=== PATIENT | female | born 1945 | race Caucasian/White ===

== ENCOUNTER → 2023-09-14 09:17 | Outpatient (REF) | payer MEDICARE, OTHER, SELFPAY ==
[2023-09-14 13:34] LABS: Blood Urea Nitrogen 22 mg/dl (7-17); Calcium 10.2 mg/dl (8.4-10.2); Carbon Dioxide 31 mmol/L (22-30); Chloride 97 mmol/L (98-107); Glucose 206 mg/dl (70-99); Sodium 135 mmol/L (135-145); eGFR 51.75
[2023-09-14 13:41] LABS: Potassium 4.8 mmol/L (3.5-5.1)
[2023-09-14 14:15] LABS: Glycohemoglobin (HgbA1c) 7.7 % (4.0-5.6)
== END ==
LOC: HWLAB 09:17
PROVIDERS: ATTENDING PHYSICIAN Internal Medicine
DX: I10 Essential (primary) hypertension (principal); E11.9 Type 2 diabetes mellitus without complications
CPT/HCPCS: 36415; 80048; 83036

== ENCOUNTER → 2023-10-09 07:53 | Outpatient (REF) | payer MEDICARE, OTHER, SELFPAY | LOC: HWRAD 07:53 | PROVIDERS: ATTENDING PHYSICIAN Internal Medicine | DX: M25.552 Pain in left hip (principal) | CPT/HCPCS: 73502 ==

== ENCOUNTER 2023-11-28 11:52 | Emergency (ER) | payer MEDICARE, OTHER, SELFPAY ==
[2023-11-28 11:53] VITALS: BP 105/67
--- NOTE | 2023-11-28 12:54 | ED.GENMED ---
History of Present Illness
<Jocelyne Whatley PA-C - Last Filed: 11/28/23 18:08>
General
Chief Complaint: DVT/Possible Blood Clot
Source: patient
Exam Limitations: none
Time Seen by Provider: 11/28/23 12:01
Nursing documentation reviewed up to this point in time: agreed with
Travel History
Have you had any contact with someone who has COVID-19?: No
Do you have any symptoms of coronavirus? Fever > 100 degrees, chills, cough, shortness of breath, sore throat, loss of taste or smell, muscle aches, or headache?: No
History of Present Illness
History of Present Illness:
Patient is a 78-year-old female with history of diabetes presenting for evaluation of atraumatic left ankle pain. Patient states that she had pain in her left ankle that woke her up in the middle of the night last night. She endorses a sharp pain
in her left ankle which initially started on the medial aspect and now moved to the lateral aspect. She has been unable to bear weight due to the pain. Patient was seen at an urgent care earlier today where they performed an x-ray which was
negative for any acute fracture. She was sent to the emergency department to rule out a blood clot.
Patient denies any associated fever, chills, nausea, vomiting, weakness. Patient denies any numbness/tingling in left lower extremity. Patient denies any known trauma. Patient denies any recent insect bites, wounds to the left ankle. Patient
denies any past history of gout. Patient denies any history of blood clots or clotting disorders.
Past History
<Jocelyne Whatley PA-C - Last Filed: 11/28/23 18:08>
Past History
ED Past Medical History: Cancer, HTN, NIDDM and Hypothyroidism
ED Past Surgical History: Appendectomy, Cardiac (Pacemaker), Cholecystectomy and Other (Mastectomy)
Social History
Tobacco: Non-smoker
Alcohol: None
Drug: None
Personal:
Living: with family
Review of Systems
<Jocelyne Whatley PA-C - Last Filed: 11/28/23 18:08>
Review of Systems
Allergies reviewed?: Yes
All Other Systems: ROS reviewed and negative except as documented in HPI and ROS
Phy Exam
<Jocelyne Whatley PA-C - Last Filed: 11/28/23 18:08>
Physical Exam
Physical Exam:
Vitals: Patient's vital signs are stable. Afebrile
General: Patient is well appearing, no acute distress. Nontoxic-appearing
Skin: Warm and dry, no rashes or lesions. No bruising
Head: Normocephalic, atraumatic
Eyes: Sclera nonicteric. EOMs intact. No nystagmus.
Throat: Protecting airway
Neck: Normal ROM, no cervical spine tenderness, no meningismus
Cardiac: Regular rate and rhythm, no murmurs.
Pulm: Normal respiratory effort, no wheezes, rales, rhonchi heard on exam.
Abdomen: Abdomen soft. No abdominal tenderness.
Extremities: Swelling and tenderness noted to left ankle at lateral malleolus. Some mild tenderness at right medial knee. No tenderness to left medial malleolus. There is no warmth or erythema of left ankle. No red streaking. No tenderness to
base of fifth metatarsal or left midfoot, left hindfoot. Achilles is intact. DP and PT pulses palpable and intact. Somewhat limited range of motion in left ankle due to pain.
Neuro: AAOx3. CN II-XII intact. No focal neurologic deficits.
Psychiatric: Normal affect.
Course
<Jocelyne Whatley PA-C - Last Filed: 11/28/23 18:08>
Orders/Labs/Results
Orders:
Orders
11/28/23 12:02
US Periph Venous LOWER Ext LT Urgent
Comment:
Reason For Exam: nontraumatic leg pain, normal xrays
11/28/23 12:53
Acetaminophen [Tylenol] 650 mg PO NOW STA
11/28/23 13:11
Ankle, left 3 view CR [CR Ankle - Left Min 3 Views ] Urgent
Comment:
Reason For Exam: atraumatic left ankle pain
11/28/23 13:42
CRP [C-Reactive Protein] Urgent
Complete Blood Count/With Diff Urgent
Comprehensive Metabolic Panel Urgent
ESR [Erythrocyte Sed Rate] Urgent
Lyme PCR, DNA [S] Urgent
Uric Acid Urgent
11/28/23 15:31
Air Splint Left-Treatment ONCE
Abnormal Lab Results
11/28/23
13:42
Absolute Monos (auto) 0.7 H 10^3/uL
(0.1-0.6)
Lymphocytes % 20.2 L %
(20.5-51.1)
Monocytes % 9.4 H %
(1.7-9.3)
BUN 23 H mg/dl
(7-17)
Glucose 142 H mg/dl
(70-99)
11/28/23 13:42
11/28/23 13:42
Vital Signs
Initial and Last Documented VS:
Initial Vital Signs
Temp Pulse Resp BP Pulse Ox
98.8 F 60 18 105/67 98
11/28/23 11:53 11/28/23 11:53 11/28/23 11:53 11/28/23 11:53 11/28/23 11:53
Last Documented Vital Signs
Temp Pulse Resp BP Pulse Ox
98.8 F 60 18 119/57 98
11/28/23 11:53 11/28/23 15:59 11/28/23 15:59 11/28/23 15:59 11/28/23 15:59
Cathilt;Rocael José DO - Last Filed: 11/28/23 13:52>
Orders/Labs/Results
Orders:
Orders
11/28/23 12:02
US Periph Venous LOWER Ext LT Urgent
Comment:
Reason For Exam: nontraumatic leg pain, normal xrays
11/28/23 12:53
Acetaminophen [Tylenol] 650 mg PO NOW STA
11/28/23 13:11
Ankle, left 3 view CR [CR Ankle - Left Min 3 Views ] Urgent
Comment:
Reason For Exam: atraumatic left ankle pain
11/28/23 13:42
CRP [C-Reactive Protein] Urgent
Complete Blood Count/With Diff Urgent
Comprehensive Metabolic Panel Urgent
ESR [Erythrocyte Sed Rate] Urgent
Lyme PCR, DNA [S] Urgent
Uric Acid Urgent
11/28/23 15:31
Air Splint Left-Treatment ONCE
Abnormal Lab Results
11/28/23
13:42
Absolute Monos (auto) 0.7 H 10^3/uL
(0.1-0.6)
Lymphocytes % 20.2 L %
(20.5-51.1)
Monocytes % 9.4 H %
(1.7-9.3)
BUN 23 H mg/dl
(7-17)
Glucose 142 H mg/dl
(70-99)
11/28/23 13:42
11/28/23 13:42
Vital Signs
Initial and Last Documented VS:
Initial Vital Signs
Temp Pulse Resp BP Pulse Ox
98.8 F 60 18 105/67 98
11/28/23 11:53 11/28/23 11:53 11/28/23 11:53 11/28/23 11:53 11/28/23 11:53
Last Documented Vital Signs
Temp Pulse Resp BP Pulse Ox
98.8 F 60 18 119/57 98
11/28/23 11:53 11/28/23 15:59 11/28/23 15:59 11/28/23 15:59 11/28/23 15:59
<Jocelyne Whatley PA-C - Last Filed: 11/28/23 18:08>
MDM/Problems Addressed
Differential Diagnosis Includes:
Not limited to: Ankle sprain, ankle fracture, DVT, septic arthritis, Lyme arthritis, gouty arthritis, left ankle effusion
MDM/Problems Addressed:
78-year-old female with history diabetes, hypertension presenting for evaluation of acute onset left ankle pain last night. No known trauma or inciting event. Patient without any systemic symptoms of infection including fever, chills, fatigue,
nausea, vomiting, weakness. Patient seen in urgent care with negative left foot x-ray and sent to emergency department for DVT rule out. Patient's vital signs are stable, she is afebrile. Physical exam as above. Patient is well-appearing, in no
apparent distress. Patient is nontoxic-appearing. There is some pain and swelling noted around left lateral malleolus without any overlying warmth, erythema, red streaking. No evidence to suggest cellulitis. Do not suspect septic arthritis given
lack of systemic symptoms and no redness or warmth of joint. Patient has limited range of motion left ankle due to pain. Achilles intact. Great sensation and palpable pulses of left lower extremity. Will give Tylenol for pain. Apply ice.
It appears that only foot x-rays performed urgent care. Will get x-ray of left ankle. Will check ultrasound to rule out DVT, although very low suspicion for this currently. Given history of diabetes and atraumatic nature of pain�will check basic
labs, inflammatory markers, Lyme titer, uric acid to evaluate for other possible causes of joint swelling.
Labs noted. No leukocytosis. Both ESR and CRP are within normal range. Uric acid levels within normal range, as well chemistry without any clinically significant abnormalities. Lyme testing pending. X-ray of ankle shows no evidence of acute
fracture or dislocation. Ultrasound of left lower extremity shows no evidence of DVT. At this point�work appears mostly negative. Unsure exact etiology of patient's symptoms today although possibility that it is an unknown injury. Liklihood of
septic arthritis less likely given no evidence of leukocytosis or elevation in inflammatory markers. Patient had significant improvement in pain following Tylenol. She was able to ambulate with the help of a walker to the bathroom. She is stable
for discharge at this point with close return precautions for any signs of infection or worsening symptoms. Patient will place in air splint and will get a walker at a pharmacy at home per patient's daughter. Patient was offered prescription for
anti-inflammatory�declined and will stick with Tylenol. Discharged with return precautions, instructions to rest, ice, elevate and follow-up with primary care for further evaluation. Patient will be contacted if Lyme test positive.
Chronic conditions affecting care:
Diabetes
Acute Exacerbation and/or Progression of Chronic Illness:
N/A
<Jocelyne Whatley PA-C - Last Filed: 11/28/23 18:08>
*Radiology
Radiology exam reviewed: preliminary read by ED provider and radiology read reviewed
*Pulse Oximetry
Patient hypoxic: no
*EKG
Interpreted by ED Provider?: NA
*Olericulture Professor Interpretation
Rate: Olericulture Professor- N/A
*Critical Care Note
Total Time (30-74mins, 75-104mins- exclusive of procedures): Not Applicable
ED Attending Note
<Jocelyne Whatley PA-C - Last Filed: 11/28/23 18:08>
-
Portions of this chart may have been created with voice recognition software.� Occasional wrong word or��sound alike� substitutions may have occurred due to the inherent limitations of voice recognition software.
<Rocael José DO - Last Filed: 11/28/23 13:52>
ED Attending Note
Patient seen and examined by attending physician: Yes
I performed the substantive portion of visit, reviewed & personally made and approve the management plan that is documented in note by myself or DANY.: Yes
ED Attending Note:
Patient is a 78-year-old female who is diabetic with sugars ranging under 200s in the morning who presents with left ankle pain. Patient went to urgent care and was sent to the emergency department to rule out DVT. Patient denies any previous
history of DVT. Patient denies any injury to the ankle. Patient has pain with walking. Patient denies any rashes or bug bites. Patient denies fever or chills. Patient on physical exam does not appear to be in any distress. Ankle is tender and
swollen around the lateral malleolus. Achilles tendon intact. Left knee is tender along the medial surface. Patient has no edema or cyanosis. X-ray of the ankle is unremarkable. I doubt DVT but will check an ultrasound. Will also check labs.
Unsure but appears to be more inflammatory but could be an unknown injury. Do not anticipate the patient requiring admission. Will check renal function to see about anti-inflammatories. Would prefer not to use prednisone given the patient's
diabetic questionable on ability to adjust medication.
Discharge Plan
Departure
Patient Disposition: Home (Routine Discharge)
Date of Disposition: 11/28/23
Time of Disposition: 15:32
Patient with high blood pressure during this ER visit?: No
Condition: Good
Covid-19: Not Applicable
Discharge Problem:
Left ankle swelling
Instructions: Ankle Sprain ED
Prescriptions:
No Action
pioglitazone [Actos] 15 mg Tablet
15 mg PO NOON
donepezil 5 mg Tablet
3 mg PO BID
famotidine 40 mg Tablet
40 mg PO NOON
sertraline [Zoloft] 100 mg Tablet
100 mg PO BID
levothyroxine [Synthroid] 100 mcg Tablet
100 mcg PO DAILY
alprazolam [Xanax] 0.5 mg Tablet
0.5 mg PO TID
methenamine hippurate [Hiprex] 1 gram Tablet
1 g PO QPM
ascorbic acid (vitamin C) [Vitamin C] 500 mg Tablet
500 mg PO NOON
vitamin B complex Tablet
1 tab PO NOON
ramipril [Altace] 5 mg Capsule
5 mg PO BID
cholecalciferol (vitamin D3) [Vitamin D3] 25 mcg (1,000 unit) Tablet
25 mcg PO NOON
nebivolol [Bystolic] 10 mg Tablet
10 mg PO QPM
pantoprazole [Protonix] [address] For Susp In Packet
40 mg PO QPM
hyalur ac-chond sul-colg II-AA 40-80-400 mg Capsule
1 cap PO NOON
magnesium oxide 400 mg magnesium Capsule
400 mg PO NOON
Probiotic (with Vitamin D3) 2 billion cell- 5 mcg Tablet,Chewable
1 tab PO DAILY
Referrals:
Sim Patton MD [Family Provider] - Follow up in 5-7 days
Activity Restrictions/Additional Instructions:
RETURN TO THE EMERGENCY DEPARTMENT WITH ANY FEVERS, CHILLS, INTRACTABLE PAIN, WORSENING IN REDNESS,WARMTH, OR SWELLING OF ANKLE, NUMBNESS/TINGLING IN LEFT ANKLE, WORSENING IN CURRENT SYMPTOMS OR ANY OTHER CONCERNS
-As discussed�you should keep left lower leg elevated and apply ice to ankle. You can take Tylenol and/or Motrin as needed for discomfort. You should use a walker for stability over the next 2 days if symptoms improve.
-Is important to monitor your symptoms closely return with any acute worsening or any signs of infection. These include fevers, chills, redness, warmth, red streaking, worsening pain in left ankle.
-We have sent a test for Lyme disease. If this test is not a positive we will give you a call in a few days with the results.
Interventions
Interventions:
*Risk Screen - Suicide Last Done: 11/28/23 13:48
*General Assessment Last Done: 11/28/23 13:48
*Neglect/Abuse Screening Last Done: 11/28/23 13:48
ED- Fall Risk Assessment Last Done: 11/28/23 16:05
*ED COVID-19 Vaccine History Last Done: 11/28/23 13:48
*Nursing Disposition Last Done: 11/28/23 16:05
ED-Skin Assessment Last Done: 11/28/23 13:48
ED- Pulmonary Assessment Last Done: 11/28/23 13:48
ED- Cardiac Assessment Last Done: 11/28/23 13:48
Discharge Date and Time
Discharge Date/Time: 11/28/23 16:05
Print Language: AFGHAN
[2023-11-28] MEDS: TYLENOL 650 MG PO (13:09)
[2023-11-28 13:43] VITALS: BMI 30.2
[2023-11-28 13:59] LABS: % Basophils 0.4 % (0-2); % Eosinophils 1.1 % (0-6); % Immature Granulocytes 0.4 % (0-0.5); % Lymphocytes 20.2 % (20.5-51.1); % Monocytes 9.4 % (1.7-9.3); % Neutrophils 68.5 % (42.2-75.2); Absolute Eosinophils 0.1 10^3/uL (0-0.7); Absolute Lymphocytes 1.5 10^3/uL (1.2-3.4); Absolute Monocytes 0.7 10^3/uL (0.1-0.6); Hematocrit 39.8 % (37.0-47.0); Hemoglobin 13.7 g/dL (12.0-16.0); Mean Corp Hgb Conc. 34.4 g/dL (33.0-37.0); Mean Corpuscular Hgb 30.8 pg (27.0-31.0); Mean Corpuscular Volume 89.4 fL (81.0-99.0); Nucleated Red Blood Cells % 0 %; Platelet Count 149 10^3/uL (130-400); Red Blood Cell Count 4.45 10^6/uL (4.20-5.40); Red Cell Dist. Width 12.9 % (11.5-14.5); White Blood Cell Count 7.3 10^3/uL (4.8-10.8)
[2023-11-28 14:13] LABS: ALT (SGPT) 16 U/L (0-35); AST (SGOT) 20 U/L (14-36); Albumin 4.4 g/dl (3.5-5.0); Alkaline Phosphatase 68 U/L (38-126); Blood Urea Nitrogen 23 mg/dl (7-17); Calcium 9.7 mg/dl (8.4-10.2); Carbon Dioxide 27 mmol/L (22-30); Chloride 102 mmol/L (98-107); Estimated Creatinine Clearance 57 ml/min; Glucose 142 mg/dl (70-99); Potassium 4.4 mmol/L (3.5-5.1); Sodium 138 mmol/L (135-145); Total Bilirubin 0.6 mg/dl (0.2-1.3); Total Protein 7.4 g/dl (6.3-8.2); Uric Acid 5.7 mg/dl (2.5-6.2); eGFR > 60.00
[2023-11-28 14:14] LABS: Erythrocyte Sed Rate 19 mm/hour (0-20)
[2023-11-28 14:15] LABS: C-Reactive Protein < 5.00 mg/L (0.0-10.00)
[2023-11-28 15:59] VITALS: BP 119/57
== END 2023-11-28 16:05 | disposition home or self-care (01) ==
LOC: EMR 11:52
PROVIDERS: Physician Assistant; EMERGENCY PHYSICIAN Emergency Medicine; FAMILY PHYSICIAN Internal Medicine
DX: M25.472 Effusion, left ankle (principal); M25.572 Pain in left ankle and joints of left foot; M79.605 Pain in left leg; E11.9 Type 2 diabetes mellitus without complications; I10 Essential (primary) hypertension; E03.9 Hypothyroidism, unspecified; F41.9 Anxiety disorder, unspecified; F32.A Depression, unspecified; K21.9 Gastro-esophageal reflux disease without esophagitis; Z79.84 Long term (current) use of oral hypoglycemic drugs; Z95.0 Presence of cardiac pacemaker; Z85.3 Personal history of malignant neoplasm of breast; Z90.49 Acquired absence of other specified parts of digestive tract; Z90.10 Acquired absence of unspecified breast and nipple
CPT/HCPCS: 99284; 29515; 73610; 80053; 84550; 85025; 85652; 86140; 87476; 93971

== ENCOUNTER → 2024-01-29 10:17 | Outpatient (REF) | payer MEDICARE, OTHER, SELFPAY ==
[2024-01-29 11:25] LABS: ALT (SGPT) 17 U/L (0-35); AST (SGOT) 20 U/L (14-36); Albumin 4.6 g/dl (3.5-5.0); Alkaline Phosphatase 68 U/L (38-126); Blood Urea Nitrogen 24 mg/dl (7-17); Calcium 10.2 mg/dl (8.4-10.2); Carbon Dioxide 29 mmol/L (22-30); Chloride 102 mmol/L (98-107); Glucose 178 mg/dl (70-99); HDL Cholesterol 53 mg/dl; LDL Cholesterol, Calculated 68 mg/dl; Magnesium 1.7 mg/dl (1.6-2.3); Potassium 5.2 mmol/L (3.5-5.1); Sodium 138 mmol/L (135-145); Total Bilirubin 0.5 mg/dl (0.2-1.3); Total Cholesterol 155 mg/dl (50-199); Total Protein 7.4 g/dl (6.3-8.2); Triglyceride 174 mg/dl (10-149); Very Low Density Lipoprotein 34 mg/dl (0-30); eGFR 51.75
[2024-01-29 11:32] LABS: % Basophils 0.9 % (0-2); % Eosinophils 2.6 % (0-6); % Immature Granulocytes 0.2 % (0-0.5); % Lymphocytes 24.1 % (20.5-51.1); % Monocytes 9.3 % (1.7-9.3); % Neutrophils 62.9 % (42.2-75.2); Absolute Basophils 0.1 10^3/uL (0-0.2); Absolute Eosinophils 0.2 10^3/uL (0-0.7); Absolute Lymphocytes 1.4 10^3/uL (1.2-3.4); Absolute Monocytes 0.5 10^3/uL (0.1-0.6); Absolute Neutrophils 3.6 10^3/uL (1.4-6.5); Hematocrit 41.9 % (37.0-47.0); Hemoglobin 14.5 g/dL (12.0-16.0); Mean Corp Hgb Conc. 34.6 g/dL (33.0-37.0); Mean Corpuscular Hgb 31.5 pg (27.0-31.0); Mean Corpuscular Volume 91.1 fL (81.0-99.0); Mean Platelet Volume 10.3 fL (7.4-10.4); Nucleated Red Blood Cells % 0 %; Platelet Count 162 10^3/uL (130-400); Red Cell Dist. Width 13.1 % (11.5-14.5); White Blood Cell Count 5.7 10^3/uL (4.8-10.8)
[2024-01-29 11:36] LABS: Vitamin D, 25-OH*** 69.6 ng/mL (30-80)
[2024-01-29 11:39] LABS: Urine Albumin Trace (Neg - Trace); Urine Bilirubin Negative (Negative); Urine Character Clear (Clear); Urine Color Yellow; Urine Glucose 2+ (Negative); Urine Ketone Negative (Negative); Urine Leukocyte 1+ (Negative); Urine Nitrite Positive (Negative); Urine Occult Blood Negative (Negative); Urine Urobilinogen Negative (Neg - 1+)
[2024-01-29 11:49] LABS: TSH 1.61 uIU/ml (0.47-4.68)
[2024-01-29 11:53] LABS: Urine Bacteria Many (Negative); Urine Red Blood Cell None Seen /HPF (0-2)
[2024-01-29 13:24] LABS: Microalbumin/creatinine Ratio 5.8 mg/g
[2024-01-29 14:18] LABS: Glycohemoglobin (HgbA1c) 7.2 % (4.0-5.6)
== END ==
LOC: REG 10:17
PROVIDERS: ATTENDING PHYSICIAN Internal Medicine Endocrinology, Diabetes & Metabolism; FAMILY PHYSICIAN Internal Medicine
DX: N17.9 Acute kidney failure, unspecified (principal); E11.9 Type 2 diabetes mellitus without complications; E55.9 Vitamin D deficiency, unspecified; I10 Essential (primary) hypertension
CPT/HCPCS: 36415; 80053; 80061; 81003; 81015; 82043; 82306; 82570; 83036; 83735; 84443; 85025

== ENCOUNTER → 2024-06-27 14:35 | Outpatient (REF) | payer MEDICARE, OTHER, SELFPAY | LOC: HWRAD 14:35 | PROVIDERS: ATTENDING PHYSICIAN Pain Medicine Interventional Pain Medicine; FAMILY PHYSICIAN Internal Medicine | DX: M54.12 Radiculopathy, cervical region (principal) | CPT/HCPCS: 72125 ==

== ENCOUNTER → 2024-07-10 09:48 | Outpatient (REF) | payer MEDICARE, OTHER, SELFPAY ==
[2024-07-10 13:08] LABS: Glycohemoglobin (HgbA1c) 7.9 % (4.0-5.6)
[2024-07-10 13:17] LABS: ALT (SGPT) 15 U/L (0-35); AST (SGOT) 21 U/L (14-36); Albumin 4.4 g/dl (3.5-5.0); Alkaline Phosphatase 78 U/L (38-126); Blood Urea Nitrogen 23 mg/dl (7-17); Calcium 9.5 mg/dl (8.4-10.2); Carbon Dioxide 30 mmol/L (22-30); Chloride 100 mmol/L (98-107); Glucose 189 mg/dl (70-99); Potassium 4.5 mmol/L (3.5-5.1); Sodium 137 mmol/L (135-145); Total Bilirubin 0.5 mg/dl (0.2-1.3); Total Protein 7.2 g/dl (6.3-8.2); eGFR > 60.00
[2024-07-10 14:23] LABS: TSH 1.66 uIU/ml (0.47-4.68)
== END ==
LOC: HWLAB 09:48
PROVIDERS: ATTENDING PHYSICIAN Internal Medicine Endocrinology, Diabetes & Metabolism; FAMILY PHYSICIAN Internal Medicine
DX: I10 Essential (primary) hypertension (principal); E11.9 Type 2 diabetes mellitus without complications; E11.65 Type 2 diabetes mellitus with hyperglycemia; E06.3 Autoimmune thyroiditis
CPT/HCPCS: 36415; 80053; 83036; 84443

== ENCOUNTER → 2024-11-14 09:25 | Outpatient (REF) | payer MEDICARE, OTHER, SELFPAY ==
[2024-11-14 11:28] LABS: Urine Albumin 1+ (Neg - Trace); Urine Bilirubin Negative (Negative); Urine Character Slightly Cloudy (Clear); Urine Color Yellow; Urine Glucose 4+ (Negative); Urine Ketone Negative (Negative); Urine Leukocyte 2+ (Negative); Urine Nitrite Positive (Negative); Urine Occult Blood 1+ (Negative); Urine Urobilinogen Negative (Neg - 1+)
[2024-11-14 11:35] LABS: % Basophils 0.9 % (0-2); % Eosinophils 1.1 % (0-6); % Immature Granulocytes 0.2 % (0-0.5); % Lymphocytes 28.6 % (20.5-51.1); % Neutrophils 59.2 % (42.2-75.2); Absolute Eosinophils 0.1 10^3/uL (0-0.7); Absolute Lymphocytes 1.3 10^3/uL (1.2-3.4); Absolute Monocytes 0.4 10^3/uL (0.1-0.6); Absolute Neutrophils 2.6 10^3/uL (1.4-6.5); Hematocrit 40.4 % (37.0-47.0); Hemoglobin 13.8 g/dL (12.0-16.0); Mean Corp Hgb Conc. 34.2 g/dL (33.0-37.0); Mean Corpuscular Hgb 30.9 pg (27.0-31.0); Mean Corpuscular Volume 90.4 fL (81.0-99.0); Mean Platelet Volume 10.3 fL (7.4-10.4); Nucleated Red Blood Cells % 0 %; Platelet Count 161 10^3/uL (130-400); Red Blood Cell Count 4.47 10^6/uL (4.20-5.40); Red Cell Dist. Width 13.5 % (11.5-14.5); White Blood Cell Count 4.4 10^3/uL (4.8-10.8)
[2024-11-14 11:41] LABS: Urine Squamous Cell 16-20 /LPF (Few)
[2024-11-14 11:42] LABS: Urine Hyaline Cast 0-2 /LPF (0-2)
[2024-11-14 11:46] LABS: Urine Bacteria Many (Negative); Urine White Cell 30-40 /HPF (0-5)
[2024-11-14 11:48] LABS: ALT (SGPT) 16 U/L (0-35); AST (SGOT) 20 U/L (14-36); Albumin 4.4 g/dl (3.5-5.0); Alkaline Phosphatase 57 U/L (38-126); Blood Urea Nitrogen 21 mg/dl (7-17); Calcium 9.5 mg/dl (8.4-10.2); Carbon Dioxide 28 mmol/L (22-30); Chloride 106 mmol/L (98-107); Glucose 189 mg/dl (70-99); HDL Cholesterol 43 mg/dl; LDL Cholesterol, Calculated 102 mg/dl; Magnesium 1.8 mg/dl (1.6-2.3); Potassium 4.4 mmol/L (3.5-5.1); Sodium 140 mmol/L (135-145); Total Bilirubin 0.5 mg/dl (0.2-1.3); Total Cholesterol 189 mg/dl (50-199); Total Protein 7.4 g/dl (6.3-8.2); Triglyceride 223 mg/dl (10-149); Very Low Density Lipoprotein 44 mg/dl (0-30); eGFR > 60.00
[2024-11-14 12:12] LABS: TSH 4.86 uIU/ml (0.47-4.68)
[2024-11-14 12:25] LABS: Glycohemoglobin (HgbA1c) 8.1 % (4.0-5.6)
== END ==
LOC: HWLAB 09:25
PROVIDERS: ATTENDING PHYSICIAN Internal Medicine
DX: I10 Essential (primary) hypertension (principal); E78.49 Other hyperlipidemia; E03.9 Hypothyroidism, unspecified; E11.9 Type 2 diabetes mellitus without complications
CPT/HCPCS: 36415; 80053; 80061; 81003; 81015; 83036; 83735; 84443; 85025

== ENCOUNTER → 2024-12-08 12:59 | Outpatient (REF) | payer MEDICARE, OTHER, SELFPAY | LOC: DHSLP 12:59 | PROVIDERS: ATTENDING PHYSICIAN Internal Medicine | DX: G47.30 Sleep apnea, unspecified (principal); R06.83 Snoring | CPT/HCPCS: 95800 ==

== ENCOUNTER → 2024-12-24 13:15 | Outpatient (REF) | payer MEDICARE, OTHER, SELFPAY | LOC: RAD 13:15 | PROVIDERS: ATTENDING PHYSICIAN Internal Medicine | DX: M81.0 Age-related osteoporosis without current pathological fracture (principal) | CPT/HCPCS: 77080 ==

== ENCOUNTER → 2025-01-19 08:56 | Outpatient (REF) | payer MEDICARE, OTHER, SELFPAY | LOC: CLAB 08:56 | PROVIDERS: ATTENDING PHYSICIAN Specialist | DX: N39.0 Urinary tract infection, site not specified (principal) | CPT/HCPCS: 87086 ==

== ENCOUNTER → 2025-02-02 12:38 | Outpatient (REF) | payer MEDICARE, OTHER, SELFPAY ==
[2025-02-02 16:33] LABS: ALT (SGPT) 17 U/L (0-35); AST (SGOT) 19 U/L (14-36); Albumin 4.4 g/dl (3.5-5.0); Alkaline Phosphatase 67 U/L (38-126); Blood Urea Nitrogen 18 mg/dl (7-17); Calcium 9.6 mg/dl (8.4-10.2); Carbon Dioxide 29 mmol/L (22-30); Chloride 101 mmol/L (98-107); Glucose 215 mg/dl (70-99); Potassium 4.5 mmol/L (3.5-5.1); Sodium 136 mmol/L (135-145); Total Protein 7.3 g/dl (6.3-8.2); eGFR > 60.00
[2025-02-02 16:59] LABS: TSH 2.48 uIU/ml (0.47-4.68)
[2025-02-03 08:41] LABS: Glycohemoglobin (HgbA1c) 7.8 % (4.0-5.6)
== END ==
LOC: HWLAB 12:38
PROVIDERS: ATTENDING PHYSICIAN Internal Medicine Endocrinology, Diabetes & Metabolism; FAMILY PHYSICIAN Internal Medicine
DX: E11.65 Type 2 diabetes mellitus with hyperglycemia (principal); E06.3 Autoimmune thyroiditis
CPT/HCPCS: 36415; 80053; 83036; 84443

== ENCOUNTER → 2025-03-20 09:13 | Outpatient (REF) | payer MEDICARE, OTHER, SELFPAY ==
[2025-03-20 12:34] LABS: ALT (SGPT) 18 U/L (0-35); AST (SGOT) 19 U/L (14-36); Albumin 4.3 g/dl (3.5-5.0); Alkaline Phosphatase 64 U/L (38-126); Blood Urea Nitrogen 18 mg/dl (7-17); Calcium 9.4 mg/dl (8.4-10.2); Carbon Dioxide 30 mmol/L (22-30); Chloride 103 mmol/L (98-107); Glucose 213 mg/dl (70-99); HDL Cholesterol 56 mg/dl; LDL Cholesterol, Calculated 44 mg/dl; Potassium 4.2 mmol/L (3.5-5.1); Sodium 139 mmol/L (135-145); Total Protein 7.2 g/dl (6.3-8.2); Very Low Density Lipoprotein 31 mg/dl (0-30); eGFR 57.66
[2025-03-20 12:59] LABS: Microalb - Urine Creatinine 228.500 mg/dl
[2025-03-20 13:04] LABS: Microalbumin, Random Urine 10.2 mg/dl (0.6-1.7)
== END ==
LOC: HWLAB 09:13
PROVIDERS: ATTENDING PHYSICIAN Internal Medicine; OTHER PHYSICIAN Internal Medicine Cardiovascular Disease; REFERRING PHYSICIAN Internal Medicine Endocrinology, Diabetes & Metabolism
DX: I10 Essential (primary) hypertension (principal)
CPT/HCPCS: 36415; 80053; 80061; 82043; 82570